=== PATIENT | male | born 1970 | race Caucasian/White ===

== ENCOUNTER 2017-03-08 07:15 | Inpatient (IN) | payer OTHER ==
--- NOTE | 2017-03-10 15:32 | GHP ---
[f rep st] PREOP HISTORY AND PHYSICAL DATE OF ADMISSION: 03/17/2017 HISTORY OF PRESENT ILLNESS: The patient is a 46-year-old male with neck and arm pain. He underwent a left C6-7 epidural steroid injection in September of 2015 with 6 months relief and then recently had a second injection in November of 2016. He states he has had worsening left-sided neck pain and pressure with radiation down the left trapezius to mid deltoid bilaterally, but greater on the left. He had previously had paresthesias in a C6-7 radicular pattern; however, that has resolved. He rates his pain as an 8/10 to 9/10. He is currently taking Nucynta. Neck pain is worse with driving and sitting at a desk. He states he has general left arm weakness and heaviness in bilateral arms. He denies balance difficulties or bowel or bladder dysfunction but states he has some fine motor deficits. He is in a nonsmoker and quit tobacco use approximately 1 year ago. PAST MEDICAL HISTORY: Denies. PAST SURGICAL HISTORY: None. ALLERGIES: No known drug allergies. CURRENT HOME MEDICATIONS: gabapentin, supplement. FAMILY HISTORY: No pertinent neurosurgical family history. SOCIAL HISTORY: Patient admits to prior use of tobacco, quitting 1 year ago. REVIEW OF SYSTEMS: Patient denies chest pain, shortness of breath, abdominal pain, nausea, vomiting, fevers, or chills. PHYSICAL EXAM: Alert and oriented. Mood and affect appropriate. Facial expression symmetrical. PERRL. EOMI. Speech fluent. Neck supple. Muscle strength full UE and LE at 5/5. Sensation intact to light touch. ASSESSMENT AND PLAN: In summary, the patient is a 46-year-old male with ongoing neck pain and upper extremity symptoms. He has an MRI of the cervical spine from December of 2016 that reveals degenerative disk disease with spondylosis at C5-6 and C6-7 with mild central and severe bilateral foraminal stenosis at these levels. There is mild disease at C4-5. As he has failed conservative treatment with multiple epidural steroid injections, NSAIDs, and home exercises , as well as narcotic medications, we believe it is reasonable to proceed with intervention. We recommend an anterior cervical diskectomy and fusion at C5-6 and C6-7. The risks, benefits, and procedure were discussed in detail with the patient. He has decided to proceed with surgery and has signed consent. All questions and concerns were addressed and answered. /[id number]/MODL MTDD
[2017-03-17] MEDS ORDERED: ceFAZolin 2 GM/DEXTROSE 100 ML IV ONE (06:12)
[2017-03-17] MEDS ORDERED: LR 1,000 ML IV ONE (06:14)
[2017-03-17] MEDS ORDERED: SURGIFLO MATRIX KIT WITH THROMBIN TP ONE (06:37)
[2017-03-17] MEDS ORDERED: BACITRACIN 50,000 UNITS/10 ML SYR IRR ONE (06:38)
[2017-03-17] MEDS ORDERED: BUPIVACAINE/EPI 0.25% 30 ML SDV ONE (06:38)
[2017-03-17] MEDS ORDERED: THROMBIN (BOVINE) 5,000 UNIT VIAL TP ONE (06:38)
[2017-03-17] MEDS ORDERED: MIDAZOLAM 2 MG/2 ML VIAL IVP ONE (06:48)
--- NOTE | 2017-03-17 06:51 | PDANEPAE ---
ANE History of Present Illness C5-7 ACDF ANE Past Medical History - Cardiovascular History Hx Hypertension: No Hx Arrhythmias: No Hx Chest Pain: No Hx Coronary Artery / Peripheral Vascular Disease: No Hx CHF / Valvular Disease: No Hx Palpitations: No - Pulmonary History Hx COPD: No Hx Asthma/Reactive Airway Disease: No Hx Recent Upper Respiratory Infection: No Hx Oxygen in Use at Home: No Hx Sleep Apnea: No Sleep Apnea Screening Result - Last Documented: Negative - Neurologic History Hx Cerebrovascular Accident: No Hx Seizures: No Hx Dementia: No Neurologic History Comment: B arm pain with raising arm, neck extension - Endocrine History Hx Diabetes: No - Renal History Hx Renal Disorders: No - Liver History Hx Hepatic Disorders: No - Neurological & Psychiatric Hx Hx Neurological and Psychiatric Disorders: Yes - Cancer History Hx Cancer: No - Congenital Disorder History Hx Congenital Disorders: No - GI History Hx Gastrointestinal Disorders: No - Other Health History Other Health History: Cervical STENOSIS - Chronic Pain History Chronic Pain: Yes (NECK AND SHOULDERS) - Surgical History Prior Surgeries: GLAUCOMA OD 2016. CAESAR ING HERNIA. RT STRABISMUS. TONSILLECTOMY. RT CATARACT ANE Review of Systems Review of systems is: negative - Exercise capacity METS (RN): 4 METS ANE Patient History - Allergies Allergies/Adverse Reactions: No Known Allergies Allergy (Unverified 01/03/17 11:44) - Home Medications Home Medications: Gabapentin [Neurontin 100 MG (*)] 100 mg PO BID PRN 01/03/17 [Last Taken ] Gabapentin [Neurontin 300 MG (*)] 1,800 mg PO BID 01/03/17 [Last Taken 03/09/17] Herbals/Supplements -Info Only 1 ea PO DAILY 01/03/17 [Last Taken Unknown] Multivitamins [Multivitamin (*)] 1 each PO DAILY 01/03/17 [Last Taken 01/19/17] Tapentadol HCl [Nucynta 50 MG (*)] 75 mg PO BID 01/03/17 [Last Taken 03/09/17] Zorvolex TID 01/30/17 [Last Taken 03/09/17] - NPO status NPO Status: no food or drink >8 hours NPO Since - Liquids (Date): 03/16/17 NPO Since - Liquids (Time): 00:00 NPO Since - Solids (Date): 03/16/17 NPO Since - Solids (Time): 19:30 - Anes Hx Anes Hx: no prior problems - Smoking Hx Smoking Status: Former smoker - Family Anes Hx Family Anes Hx: none ANE Labs/Vital Signs - Labs Result Diagrams: 03/17/17 06:40 - Vital Signs Blood Pressure: 131/80 Heart Rate: 60 Respiratory Rate: 12 O2 Sat (%): 96 Height: 182.88 cm Weight: 82.554 kg ANE Physical Exam - Airway Neck exam: FROM Mallampati Score: Class 1 Mouth exam: normal dental/mouth exam - Pulmonary Pulmonary: no respiratory distress - Cardiovascular Cardiovascular: regular rate and rhythym - ASA Status ASA Status: II ANE Anesthesia Plan Anesthesia Plan: general endotracheal anesthesia
[2017-03-17 07:07] LABS: INR 0.86 (0.83-1.16); PROTIME(PATIENT) 11.6 SEC (12.0-15.0)
[2017-03-17 07:08] LABS: APTT 28.6 SEC (23.0-38.0)
[2017-03-17] MEDS ORDERED: fentaNYL 100 MCG/2 ML INJ ONE ×2 (07:10→11:40)
[2017-03-17] MEDS ORDERED: ONDANSETRON 4 MG/2 ML VIAL ONE (07:10)
[2017-03-17] MEDS ORDERED: REMIFENTANIL HCL 1 MG VIAL ONE (07:10)
[2017-03-17] MEDS ORDERED: HYDROmorphONE/DILAUDID 2 MG/ML INJ ONE (07:10)
[2017-03-17] MEDS ORDERED: PROPOFOL 200 MG/20 ML VIAL ONE (07:10)
[2017-03-17] MEDS ORDERED: DEXAMETHASONE 4 MG/ML VIAL ONE (07:10)
[2017-03-17] MEDS ORDERED: LIDOCAINE 2% 100 MG/5 ML SYR ONE (07:10)
[2017-03-17] MEDS ORDERED: ROCURONIUM 50 MG/5 ML VIAL ONE (07:10)
[2017-03-17] MEDS ORDERED: PROPOFOL/EMULSION 500 MG/50 ML BOTTLE IV ONE (07:10)
[2017-03-17 07:20] LABS: ANION GAP 13 mEq/L (8-16); CALCIUM 9.4 mg/dL (8.5-10.4); CARBON DIOXIDE 23 mEq/l (22-31); CHLORIDE 106 mEq/L (97-110); CREATININE 0.9 mg/dL (0.7-1.3); GLOMERULAR FILTRATION RATE > 60; GLUCOSE 87 mg/dL (70-100); POTASSIUM 4.2 mEq/L (3.5-5.2); SODIUM 142 mEq/L (134-144)
--- NOTE | 2017-03-17 07:20 | PDHPUP ---
History & Physical Update H&P update statement: This history and physical update is based on an assessment of the patient which was completed after admission or registration (within 24 hours), but prior to the surgery/procedure.
[2017-03-17] MEDS ORDERED: MIDAZOLAM 2 MG/2 ML VIAL ONE (07:22)
[2017-03-17] MEDS ORDERED: BUPIVACAINE 0.5% 30 ML SDV ONE (08:01)
--- NOTE | 2017-03-17 08:24 | POSTANESTH ---
Post Anesthetic Evaluation Cardiovascular Status: Normal, Stable, Similar to Pre-Op Cond Respiratory Status: Normal, Stable, Similar to Pre-op Cond. Level of Consciousness/Mental Status: Can Participate in Eval, Mildly Sleepy, Arousable Pain Control: Adequate, Prn Tx Ordered Nausea/Vomiting Control: Adequate, Prn Tx Ordered Complications Possibly Related to Anesthesia: None Noted
[2017-03-17] MEDS ORDERED: DEXAMETHASONE 4 MG/ML VIAL IVP PRN (09:49)
[2017-03-17] MEDS ORDERED: fentaNYL 100 MCG/2 ML INJ IVP PRN (09:49)
[2017-03-17] MEDS ORDERED: ONDANSETRON 4 MG/2 ML VIAL IVP PRN ×2 (09:49→11:42)
[2017-03-17] MEDS ORDERED: MEPERIDINE 25 MG/ML SYR IVP PRN (09:49)
[2017-03-17] MEDS ORDERED: NALOXONE HCL 0.4 MG/ML INJ IVP PRN (09:49)
[2017-03-17] MEDS ORDERED: OXYCODONE/APAP 5/325 TAB PO PRN (09:49)
[2017-03-17] MEDS ORDERED: HYDROCODONE/APAP 5/325 TAB PO PRN (09:49)
[2017-03-17] MEDS ORDERED: HYDROmorphONE/DILAUDID 1 MG/ML SYR IVP PRN (09:49)
[2017-03-17] MEDS ORDERED: ACETAMINOPHEN 500 MG TAB PO PRN (09:49)
[2017-03-17] MEDS ORDERED: PROMETHAZINE HCL 25 MG/ML INJ IVP PRN (09:49)
[2017-03-17] MEDS ORDERED: LACTULOSE 20 GM/30 ML UDCUP PO PRN (11:42)
[2017-03-17] MEDS ORDERED: MAGNESIUM HYDROXIDE 30 ML UDCUP PO PRN (11:42)
[2017-03-17] MEDS ORDERED: ONDANSETRON DISINTEGRATING 4 MG TAB PO PRN (11:42)
[2017-03-17] MEDS ORDERED: BISACODYL 10 MG SUPP PR PRN (11:42)
[2017-03-17] MEDS ORDERED: diphenhydrAMINE 25 MG CAP PO PRN (11:42)
[2017-03-17] MEDS ORDERED: POLYETHYLENE GLYCOL 3350 17 GM PKT PO PRN (11:42)
[2017-03-17] MEDS ORDERED: NS 1,000 ML IV SCH (11:45)
[2017-03-17] MEDS ORDERED: DIAZEPAM 5 MG TAB PO PRN (11:46)
--- NOTE | 2017-03-17 12:16 | POSTOPPROG ---
Post Op Note Date of Operation: 03/17/17 Surgeon: Guadalupe Guerin Boat Oar Maker: Catarina Fierro PA-C Anesthesia: GET(General Endotracheal) Pre-op Diagnosis: Cervical radiculopathy Post-op Diagnosis: Cervical radiculopathy Procedure: ACDF C5-7 Inf/Abcess present in the surg proc area at time of surgery?: No Depth: Deep Incisional (Fascial) EBL: Minimal Drains: Arturo Clancy Plan Plan: 46 yo male s/p ACDF C5-7 - neuro checks - pain control - advance diet as tolerated - hard collar - PT/OT/ST - postop x-rays tomorrow - KAIDEN drain x 1 - Lovenox to start POD#3 Exam Awake. Alert. PERRL. EOMI Muscle strength full at 5/5 Sensation intact
--- NOTE | 2017-03-17 13:03 | GOP ---
[f rep st] OPERATIVE REPORT DATE OF OPERATION: 03/17/2017 SURGEON: Guadalupe Guerin DO NEUROSURGEON: Guadalupe Guerin DO WHITE MIXING OPERATOR: Catarina Fierro PA-C PREOPERATIVE DIAGNOSIS: Cervical spondylosis. POSTOPERATIVE DIAGNOSIS: Cervical spondylosis. PROCEDURE PERFORMED: C5-6, C6-7 anterior cervical diskectomy, fusion with LDR, ROIC 8 x 12 x 14 mm graft at C5-6 and 9 x 12 x 14 mm graft at C6-7, autograft, allograft, microscope, neuromonitoring. FINDINGS: FLUIDS: 1500 mL crystalloid. URINE OUTPUT: None. DRAINS: One KAIDEN in the prevertebral space will be placed to bulb suction in the PACU. COMPLICATIONS: None. ESTIMATED BLOOD LOSS: 40 mL. INDICATIONS: This is a 46-year-old male with cervical spondylosis who has failed conservative management, elected to move forward with an C5-6, C6-7 anterior cervical diskectomy and fusion. DESCRIPTION OF PROCEDURE: He was identified and consented. Sites were marked. Brought to the operating room, anesthetized under general endotracheal anesthesia. Interscapular roll was placed. Head was placed in a neutral position on the Padilla horseshoe. The incision site was marked using x-ray. He was prepped and draped in the usual sterile fashion. Shoulders were placed in distraction. Neuromonitoring was stable. He was prepped and draped in the usual sterile fashion. Incision was anesthetized with 0.5% Marcaine with epinephrine. Incision was made with a 10 blade. Hemostasis obtained with bipolar cautery. We dissected through the platysma in a horizontal fashion using Metzenbaum scissors and then coming along the medial border of the SCM using the Cloward, retracted the trachea and esophagus medially. The carotid was palpated laterally and retracted laterally, protecting each we came down onto the anterior aspect of the cervical spine and cleared the prevertebral fascia with a Kittner. Placed an 18-gauge bayoneted spinal needle, under x-ray we were at C5 -6, this was cleared with the Bovie and then moved down and cleared the prevertebral fascia over C6-7, placed an 18-gauge spinal needle under x-ray. We were at C6-7 and cleared this with Bovie. We then measured and placed a Shadow- Line retractor, placed the [place] pins at C6 and C7. Verified they were in appropriate position. Placed the patient under distraction. Neuromonitoring remained stable. Brought in the microscope, used a high-speed drill to remove the disk and cartilaginous endplates superiorly and inferiorly, opening the posterior longitudinal ligament with a micro upgoing curette and extending this with a 1.5 Kerrison, and then using the 2 to remove disk and osteophyte from the superior and inferior endplate and out bilateral lateral foramen until the foraminal fat was seen. Inspected the foramen with a nerve hook and they were well-decompressed. Harvested autograft from the superior and inferior endplates and then measured a 9 x 12 x 14 mm graft under x-ray was in good position. We packed this graft with DBM and the patient's own bone, tamped it into place, it was in good position. I tamped the 1 wing superiorly and verified it was in good position. Cold welded with the 1, cold welded with the 2. This was a short wing. We then removed the pin inferiorly and plugged the hole with a Gelfoam bullet and then tamped the long wing with 1 impacted, verified was good position, cold welded with 1, cold welded with the 2. X-rays verified the hardware in good position and meticulous hemostasis had been obtained with Floseal. We then moved the retractors up, placed the [place] pin at C5 and took an x-ray. Verified we were in appropriate position. Placed it under distraction again, removed the disk and cartilaginous endplate using a high-speed drill, and then opened the PLL with micro upgoing curette, extended this with a 1.5 Kerrison and then used the 2 to remove disk and osteophyte from the superior and inferior endplates and out bilateral lateral foramen until foraminal fat was seen. Once we were well-decompressed and this was completed, we harvested autograft superiorly and inferiorly, measured an 8 x 12 x 14 mm graft under x-ray was in good position. We placed the patient's autograft and DBM into this graft, tamped it into place, it was in good position , removed the superior pin, plugged the hole with a Gelfoam bullet, tamped a long wing with 1 impacted, verified it was in good position, cold welded with the 1, cold welded with the 2, and then removed the inferior pin, used a Gelfoam bullet to plug this hole and then placed the short wings, tamped into place with the 1 impactor, cold welded with a 1, cold welded with a 2. This was verified we were in good position. Final x-rays reveal hardware in good position. The meticulous hemostasis had been obtained with Gelfoam and Floseal. Once meticulous hemostasis had been obtained, we copiously irrigated with bacitracin-infused saline. I removed the Shadow-Line retractor, removed the microscope, inspected the barth , put trocar to drain out inferiorly, placed it in the prevertebral space, placed a study drug into the space, removed the retractors, closed platysma with 2-0 Vicryl pop-offs, subcutaneous layer with 3-0 Vicryl pop-offs. The skin was closed with a 4-0 running Monocryl. Steri-Strips. The wound was dressed with gauze and Tegaderm. The drain was sutured with 1 of the 2-0 Vicryl pop- offs and will be placed to bulb suction in the PACU. The patient was placed in a soft collar and will be fitted for a hard collar later today,. Tolerated the procedure well. Final neuromonitoring was stable with no complications. /[id number]/MODL MTDD
[2017-03-17] MEDS: oxyCODONE IR 5 MG TAB PO PRN ×4 (13:23→22:32)
[2017-03-17] MEDS: ACETAMINOPHEN 500 MG TAB PO SCH ×2 (13:24→21:06)
[2017-03-17] MEDS: ceFAZolin 2 GM/DEXTROSE 100 ML IV SCH ×2 (13:25→20:58)
[2017-03-17 15:32] VITALS: RESP 16
[2017-03-17] MEDS: TAPENTADOL HCL 50 MG TAB PO SCH (20:58)
[2017-03-17] MEDS: GABAPENTIN 300 MG CAP PO SCH (21:02)
[2017-03-17] MEDS: SENNOSIDES/DOCUSATE SODIUM TAB PO SCH (21:04)
[2017-03-18] MEDS: ACETAMINOPHEN 500 MG TAB PO SCH (07:35)
[2017-03-18 08:06] VITALS: BP 125/87; PULSE 99; TEMP 99.1; O2SAT 93
[2017-03-18] MEDS: oxyCODONE IR 5 MG TAB PO PRN (08:15)
[2017-03-18] MEDS: TAPENTADOL HCL 50 MG TAB PO SCH (08:15)
[2017-03-18] MEDS: SENNOSIDES/DOCUSATE SODIUM TAB PO SCH (08:18)
[2017-03-18] MEDS: GABAPENTIN 300 MG CAP PO SCH (08:19)
--- NOTE | 2017-03-18 08:30 | NEUSURGPN ---
Date of Surgery: 03/17/17 Post Op Day: 1 Assessment/Plan: 46 yo male s/p ACDF C5-7 03/17/17 - may discharge home today, will need post op xrays prior to discharge - home scripts on chart - DC KAIDEN - advance diet as tolerated - hard collar - needs ileana collar for shower, please send home with patient - PT/OT/ST - Follow up with Dr Guerin in 2 weeks for post op check Subjective: Patient feeling good this am, left arm pain improve, hoarse voice Objective: Awake. Alert. PERRL. EOMI Dressing CDI Muscle strength full at 5/5 Sensation intact Neuro Check Frequency: per routine Urinary Catheter in Place: No - Physician Discussed Patient with : [facility] Physical Exam - Vitals, I&O, Labs I and O 03/17/17 03/18/17 03/19/17 05:59 05:59 05:59 Intake Total 1475 Output Total 440 Balance 1035 Weight 82.554 kg Intake: Oral (ml) 500 IV Intake (ml) 975 Output: Urine (ml) 400 Urinal 400 Estimated Blood Loss (ml) 40 Other: Intake Quantity Yes Sufficient Number of Voids Urinal 0 Vital Signs Temp Pulse Resp BP Pulse Ox 37.3 C 99 16 125/87 H 93 03/18/17 08:00 03/18/17 08:00 03/18/17 08:00 03/18/17 08:00 03/18/17 08:00 Laboratory Results 03/17/17 06:40 ICD10 Worksheet Patient Problems: Problems Problem Status Onset Cervical stenosis of spinal canal Acute - ICD10 Problem Qualifiers (1) Cervical stenosis of spinal canal
[2017-03-18] MEDS ORDERED: MULTIVITAMINS 1 EACH TAB PO SCH (09:00)
[2017-03-20] MEDS ORDERED: ENOXAPARIN 40 MG/0.4 ML SYR SC SCH (09:00)
== END 2017-03-18 10:51 | disposition home or self-care (01) | DRG 473 ==
LOC: F3N 03-17 05:54
PROVIDERS: ADMIT Neurological Surgery; ATTEND Neurological Surgery
DX: M47.22 Other spondylosis with radiculopathy, cervical region (principal); M50.322 Other cervical disc degeneration at C5-C6 level; M50.323 Other cervical disc degeneration at C6-C7 level; M48.02 Spinal stenosis, cervical region; Z87.891 Personal history of nicotine dependence
CPT/HCPCS: 92526-GN; 92610-GN; 97161-GP; 97165-GO; C1713; J0690; J1100; J1170; J2001; J2250; J2405; J2704; J3010